=== PATIENT | female | born 1955 | race Caucasian/White ===

== ENCOUNTER 2018-09-26 07:54 | Day surgery (SDC) | payer OTHER ==
[2018-09-26] MEDS ORDERED: SUGAMMADEX SODIUM 200 MG/2 ML VIAL IV ONE (08:48)
[2018-09-26] MEDS ORDERED: FAMOTIDINE 20 MG/2 ML VIAL IV ONE (08:48)
[2018-09-26] MEDS ORDERED: PHENYLEPHRINE HCL 10 MG/1 ML ONE (08:48)
[2018-09-26] MEDS ORDERED: DEXAMETHASONE SODIUM PHOSPHATE 10 MG/ML VIAL ONE (08:48)
[2018-09-26] MEDS ORDERED: SEVOFLURANE 250 ML LIQUID IH ONE (08:48)
[2018-09-26] MEDS ORDERED: ROCURONIUM BROMIDE 10 MG/ML 5ML VIAL ONE (08:48)
[2018-09-26] MEDS ORDERED: MIDAZOLAM HCL 2 MG/2 ML VIAL ONE (08:48)
[2018-09-26] MEDS ORDERED: LACTATED RINGERS 1,000 ML IV.SOLN IV ONE ×2 (08:48)
[2018-09-26] MEDS ORDERED: LIDOCAINE HCL 2% PF 100MG/5ML VIAL IJ ONE (08:48)
[2018-09-26] MEDS ORDERED: ONDANSETRON HCL/PF 4 MG/ 2ML VIAL ONE (08:48)
[2018-09-26] MEDS ORDERED: fentaNYL CITRATE/PF 100 MCG/2 ML INJ. ONE ×3 (08:48→12:51)
[2018-09-26] MEDS ORDERED: ceFAZolin SODIUM 1 GM VIAL ONE (08:48)
[2018-09-26] MEDS ORDERED: PROPOFOL 200 MG/20 ML VIAL IV ONE (08:48)
[2018-09-28 10:11] VITALS: BP 130/69
--- NOTE | 2018-09-30 10:14 | Operative Note ---
PREOPERATIVE DIAGNOSIS: 1. Morbid obesity. 2. Arthritis. 3. Type 2 diabetes. 4. Hyperlipidemia. 5. Hypertension. POSTOPERATIVE DIAGNOSIS: 1. Morbid obesity. 2. Arthritis. 3. Hyperlipidemia. 4. Hypertension. 5. Type 2 diabetes. 6. Hiatal hernia. PROCEDURES PERFORMED: 1. Laparoscopic repair of hiatal hernia. 2. Laparoscopic vertical sleeve gastrectomy. 3. Upper gastrointestinal endoscopy. SURGEON: Ron Reynolds M.D. INDICATIONS FOR PROCEDURE: Ms. Haider is a 63-year-old female who presented with features of morbid obesity and the above-listed comorbidities. She was noted to have a weight of 216 pounds with a BMI of 39.6. The patient was advised laparoscopic sleeve gastrectomy and possible hiatal hernia repair. The patient showed understanding and agreed to proceed. DESCRIPTION OF PROCEDURE: After explaining to the patient in detail and informed consent was obtained, the patient was identified in the preoperative holding area. The patient was transferred to the operating room and was placed in supine position. Sequential compressive devices were placed for DVT prophylaxis. Preoperative antibiotics were given. After induction of anesthesia, the abdomen was prepped and draped in a sterile fashion. Through a left upper quadrant 1-cm incision, and using Optiview technique, the peritoneal cavity was entered and pneumoperitoneum was created. Thereafter, under direct vision, a 5-mm trocar was placed in the left midabdomen, a 12-mm trocar was placed in the right midabdomen, and a 5-mm trocar was placed in the right upper quadrant region. Through a 1-cm incision in the epigastrium, a Colton retractor was introduced and the left lobe of the liver was retracted. On initial inspection, the patient was noted to have a 4-cm hiatal hernia. Using pars flaccida technique, the right brenda was identified. The sac was gently dissected off the right brenda and the phrenoesophageal membrane was divided anteriorly. I continued dissection along the left brenda and then I did a posterior dissection. Once this was completed, I then took down the short gastroepiploic vessels using an ENSEAL device. This was continued superiorly. The short gastric vessels were taken down. The gastrophrenic ligament was divided and the Angle of His was mobilized. Distally, the gastroepiploic vessels were taken down up to about 4 cm proximal to the pylorus. At this point, a #40 [place]st Bougie was inserted into the stomach and placed along the lesser curve of the stomach. I then performed an anterior cruroplasty with a single Ethibond suture using Endo Stitch device and 2-0 Ethibond. I then placed another suture on the esophagus and to the right crura to prevent any recurrence of the hernia. I then divided the stomach in a vertical fashion with multiple Endo SLAVA Covidien Staplers with Susan-Strips. Two black loads and multiple gold loads were used to divide the stomach in a vertical fashion to create a loose sleeve around the #40 [place] bougie. The bougie was then removed and an upper GI endoscopy was performed. The scope was introduced into the esophagus and was gradually advanced into the stomach. The sleeve appeared to be of adequate size. I did not notice any tightening at the GE junction. I performed an air leak test by insufflation of the stomach and by irrigation of fluid along the staple line. No leak was noted. The stomach was suctioned out. Absolute hemostasis was ensured. Thorough saline irrigation was given. The sleeve gastrectomy specimen was removed. The Colton retractor was removed. The 12-mm port site incision was closed with 0 Vicryl using a fascial closure device. Skin was closed with 4-0 Monocryl for all the incisions and Dermabond was applied. The patient was stable at the end of the procedure. The patient was awakened from anesthesia and was transferred to the recovery room in stable condition. ESTIMATED BLOOD LOSS: Approximately 5 mL. CONDITION OF THE PATIENT: Stable. FLUIDS GIVEN: Per Anesthesia note. SPECIMEN(S) SENT: Sleeve gastrectomy specimen. COMPLICATIONS: None. ANESTHESIA: General. Ron Reynolds M.D. SOHEILA/odalys (Please copy [facility] provider when applicable) Job #[id number]
== END 2018-09-26 13:13 | disposition other institution (70) ==
LOC: OPSURG 07:54
PROVIDERS: ATTEND Surgery
DX: E66.01 Morbid (severe) obesity due to excess calories (principal); K44.9 Diaphragmatic hernia without obstruction or gangrene; I10 Essential (primary) hypertension; E11.9 Type 2 diabetes mellitus without complications; E78.5 Hyperlipidemia, unspecified; Z68.39 Body mass index [BMI] 39.0-39.9, adult
CPT/HCPCS: 43235; 43281; J0690; J2001; J2250; J2370; J2405; J2704; J3010; 43775; J7120

== ENCOUNTER 2019-04-22 08:53 | Day surgery (SDC) | payer OTHER ==
[2018-09-28 10:11] VITALS: BP 130/69
[~2019-04-22 08:53] MED LIST: CEPHALEXIN 250 MG CAPSULE ONE; LACTATED RINGERS 1,000 ML IV.SOLN IV ONE; LIDOCAINE HCL 1%/EPI. (1:100,000) MDV 20ML VIAL IJ ONE; MIDAZOLAM HCL 2 MG/2 ML VIAL ONE; fentaNYL CITRATE/PF 100 MCG/2 ML INJ. ONE
== END 2019-04-22 14:15 | disposition home or self-care (01) ==
LOC: OPSURG 08:53
PROVIDERS: ATTEND Physical Medicine & Rehabilitation
DX: M47.26 Other spondylosis with radiculopathy, lumbar region (principal); M54.5 Low back pain
CPT/HCPCS: 63650; J2250; J3010; J7120